=== PATIENT | male | born 1990 | race Caucasian/White ===

== ENCOUNTER 2019-12-05 15:37 | Emergency (ER) | payer OTHER ==
[~2019-12-05] VITALS: Ht 180.3 cm; Wt 109.8 kg
[2019-12-05] MEDS ORDERED: SODIUM CHLORIDE 0.9% 1000ML 1,000 ML IV SCH (16:30)
[2019-12-05] MEDS ORDERED: SODIUM CHLORIDE 0.9% 1000ML 1,000 ML ONE (16:39)
[2019-12-05] MEDS ORDERED: ZOFRAN4 MG PO (17:29)
--- NOTE | 2019-12-05 17:42 | Emergency Department Note ---
History of Present Illnes History of Present Illness History of Present Illness This is a 29 year old male with one week hx of N/V/D. States 3 to 4 episodes of nausea a day. No hematemesis. Diarrhea 2 to 3 episodes a day. Was initially all watery diarrhea, but has gradually become more solid over last 2 to 3 days and now is "soft". No melena, no hematochezia. No fever. No chills. Had 2 days of dysuria at symptom onset, however this has resolved. No well water, no camping, no sick contacts, no known bad food. Works at [employer]. Had CP workup and gallbladder ultrasound which were all negative. Stared on antibiotic for UTI, but went back to clinic who told patient he did not have UTI. He denies any cough, loss of taste or smell, any other COVID symptoms other than above. Outside Cutter Required: No Onset (how long ago): week(s) (1) Duration (how long): week(s) (1) Context: Reports recent illness; Denies trauma/injury Relieving factors: none Exacerbating factors: eating Associated symptoms: Reports loss of appetite, Reports nausea/vomiting; Denies confusion, Denies chest pain, Denies cough, Denies diaphoresis, Denies fever/chills, Denies headaches, Denies malaise, Denies rash, Denies shortness of breath, Denies syncope, Denies weakness Previous service: medications given (Cipro for UTI), tests performed (above) Past Medical/Family History Physician Review I have reviewed the patient's past medical and family history. Any updates have been documented here. Past Medical History Recent Fever: No Past Medical History: None Past Surgical History: None Other Surgery: Wrist Social History Smoking Cessation: Never Smoker Alcohol Use: Occasional Any Illegal Drug Use: No Review of Systems Review of Systems Constitutional: Denies chills, Denies fever EENTM: Reports no symptoms Cardiovascular: Reports no symptoms Respiratory: Reports no symptoms Gastrointestinal: Reports no symptoms; Denies abdominal pain Genitourinary: Reports as per HPI Musculoskeletal: Reports no symptoms Neurological: Reports no symptoms Endocrine: Reports no symptoms Hematological/Lymphatic: Reports no symptoms Physical Exam Physical Exam CONSTITUTIONAL Constitutional: Present well-developed, Present well-nourished HENT HENT: Present normocephalic, Present atraumatic, Present oropharynx clear/moist, Present nose normal EYES Eyes: Reports PERRL, Reports conjunctivae normal NECK Neck: Present ROM normal PULMONARY Pulmonary: Present effort normal, Present breath sounds normal CARDIOVASCULAR Cardiovascular: Present regular rhythm, Present heart sounds normal, Present capillary refill normal, Present normal rate GASTROINTESTINAL Abdominal: Present soft, Present nontender, Present bowel sounds normal GENITOURINARY SKIN Skin: Present warm, Present dry MUSCULOSKELETAL Musculoskeletal: Present ROM normal NEUROLOGICAL Neurological: Present alert, Present oriented x 3, Present no gross motor or sensory deficits PSYCHOLOGICAL Psychological: Present mood/affect normal, Present judgement normal Results Laboratory Lab results reviewed: Yes Laboratory comments WBC 10.0, PLT 506. BUN 8, Cr 0.6, ALT 111, AST 71. UA: Forest small, blood small, Nit neg, Jerome neg, Pro 100, SG > 1.030. Assessment & Plan Medical Decision Making MDM Old records reviewed: lab from [facility] drawn 11/28/19 with normal Lipid panal, normal CMP, Normal Hem A1c, WBC 11.9. UA: cloudy, with no blood, 1+ ketones, 2+ protein, + Nit, 1+ Jerome, 6-10 WBC, Many bacteria., negative rapid & PCR covid on 11/30. Gallbladder ultrasound negative on 11/28/19. GC, Chlamydia negative. Cipro Rx 12/03/19. Differential dx includes, but not limited to: appendicitis, gastroenteritis (viral, bacterial, parasite, protozoal), pancreatitis, diverticulitis, PUD, gastris. Spoke about CT scan with patient and mom who declined CT. Abdomen non- tender. WBC improved from last week. N/V/D improving. Will continue Cipro for UTI. UA today shows dehydration, but negative for infection after starting course of Cipro. Patient to F/U PCP for LFT's and Platelets and repeat UA. Reassessment Reassessment time: 17:23 Reassessment Serial abd exams: non-tender. Assessment & Plan Final Impression: (1) Volume depletion, gastrointestinal loss (2) Dehydration (3) Hypovolemia (4) Diarrhea (5) Vomiting Depart Disposition: HOME, SELF-long term Meds Active Scripts Ondansetron Hcl* (ZOFRAN*) 4 Mg Tablet, 4 MG PO Q6H PRN for NAUSEA, #14 Prov:VINOD GONZALEZ MD 12/05/19 VINOD GONZALEZ MD Dec 05, 2019 16:35
== END 2019-12-05 17:50 | disposition home or self-care (01) ==
LOC: FSED 16:22
DX: E86.0 Dehydration (principal); E86.1 Hypovolemia; R11.2 Nausea with vomiting, unspecified; R19.7 Diarrhea, unspecified
CPT/HCPCS: 80053; 81003; 85025; 99284; J7030

== ENCOUNTER 2024-06-11 00:34 | Emergency (ER) | payer OTHER ==
[~2024-06-11] VITALS: Ht 182.9 cm; Wt 123.8 kg
[~2024-06-11 00:34] MED LIST: ZOFRAN4 MG PO
[2024-06-11 00:40] VITALS: PULSE 58; RESP 14; TEMP 97.6
[2024-06-11] MEDS ORDERED: MUPIROCIN22 GM TOP (01:29)
[2024-06-11] MEDS ORDERED: CEPHALEXIN500 MG PO (01:33)
[2024-06-11 01:55] VITALS: BP 118/78; PULSE 61; RESP 14; TEMP 97.6; O2SAT 96
== END 2024-06-11 01:38 | disposition home or self-care (01) ==
LOC: FSED 00:54
DX: S30.815A Abrasion of unspecified external genital organs, male, initial encounter (principal); X58.XXXA Exposure to other specified factors, initial encounter
CPT/HCPCS: 99283